=== PATIENT | male | born 1945 | race Caucasian/White ===

== ENCOUNTER 2023-09-19 05:53 | Emergency (ER) | payer MEDICARE, OTHER, SELFPAY ==
[2023-09-19 05:54] VITALS: BP 160/74; BMI 41.2
[2023-09-19 06:22] LABS: % Basophils 0.4 % (0-2); % Eosinophils 2.3 % (0-6); % Immature Granulocytes 0.3 % (0-0.5); % Lymphocytes 31.7 % (20.5-51.1); % Monocytes 9.9 % (1.7-9.3); % Neutrophils 55.4 % (42.2-75.2); Absolute Eosinophils 0.2 10^3/uL (0-0.7); Absolute Lymphocytes 2.5 10^3/uL (1.2-3.4); Absolute Monocytes 0.8 10^3/uL (0.1-0.6); Absolute Neutrophils 4.4 10^3/uL (1.4-6.5); Hematocrit 44.8 % (39.0-52.0); Hemoglobin 15.9 g/dL (13.0-18.0); Mean Corp Hgb Conc. 35.5 g/dL (33.0-37.0); Mean Corpuscular Hgb 30.1 pg (27.0-31.0); Mean Corpuscular Volume 84.8 fL (80.0-94.0); Mean Platelet Volume 10.8 fL (7.4-10.4); Nucleated Red Blood Cells % 0 % (-); Platelet Count 192 10^3/uL (130-400); Red Blood Cell Count 5.28 10^6/uL (4.70-6.10)
[2023-09-19 06:48] LABS: NT-proBNP 387 pg/ml; Troponin I < 0.012 ng/ml
[2023-09-19 06:51] LABS: ALT (SGPT) 28 U/L (0-50); AST (SGOT) 35 U/L (17-59); Alkaline Phosphatase 118 U/L (38-126); Blood Urea Nitrogen 18 mg/dl (9-20); Calcium 8.9 mg/dl (8.4-10.2); Carbon Dioxide 24 mmol/L (22-30); Chloride 107 mmol/L (98-107); Estimated Creatinine Clearance > 125 ml/min; Glucose 129 mg/dl (70-99); Sodium 138 mmol/L (135-145); Total Bilirubin 0.8 mg/dl (0.2-1.3); Total Protein 6.8 g/dl (6.3-8.2); eGFR > 60.00
--- NOTE | 2023-09-19 07:00 | ED.GENMED ---
History of Present Illness
General
Chief Complaint: Chest Pain
Time Seen by Provider: 09/19/23 06:45
Travel History
Have you had any contact with someone who has COVID-19?: No
Do you have any symptoms of coronavirus? Fever > 100 degrees, chills, cough, shortness of breath, sore throat, loss of taste or smell, muscle aches, or headache?: No
History of Present Illness
History of Present Illness:
HPI: The patient presents due to chest discomfort. There is somewhat of a pleuritic component with some earlier shortness of breath which has resolved. This occurred around 4 AM and woke him from sleep. He had a heart attack about 14 months ago
but this time, the symptoms feel different. The patient had a stent placed at that time. At that time, the patient's symptoms started the left hand that migrated up the left upper extremity to the chest. He is known to Dr. Avila.
EXAM:
GENERAL: Well appearing in no distress
HEENT: Moist oral mucosa
CARDIOVASCULAR: No murmurs, normal heart rate with irregular rhythm, No chest wall tenderness
PULMONARY: No respiratory distress, breath sounds are clear and equal
ABDOMEN: Soft with no peritoneal signs, no tenderness
NEUROLOGIC: Excellent strength all extremities, no coordination deficits
PSYCHIATRIC: Appropriate mental status, normal insight and judgement
EXTREMITIES: Nontender, no edema, moves all extremities equally
SKIN: No rash, no lesions
ED COURSE:
7 AM: I initially evaluated patient
NUMBER AND COMPLEXITY OF PROBLEMS ADDRESSED AT THE ENCOUNTER
� Chronic conditions affecting care: CAD, GERD, A-fib on Eliquis, high blood pressure, high blood, diabetes
� Acute Exacerbation and/or Progression of Chronic Illness:
� Differential Diagnosis includes: Musculoskeletal chest wall pain, anxiety, PE, ACS
AMOUNT AND/OR COMPLEXITY OF DATA TO BE REVIEWED AND ANALYZED
� I performed an independent evaluation of and my interpretation is:
EKG: A-fib 70, left axis deviation, nonspecific ST abnormality, on 10/14/2022, the patient was in sinus rhythm
CT: CTA negative for PE; hiatal hernia noted
X-rays:
Laboratory Studies: Initial troponin negative CBC and is unremarkable. Repeat troponin negative
Other:
� Review of other/old records: I reviewed the cath report from 11/24/2021, at that time the patient had a stent placed to the circumflex. Echo in July 03 showed an EF of 50% with indeterminate diastolic function.
� Clinical information was obtained by an independent historian: I spoke to the at bedside.
� Prescriptions/Medications Considered but not given:
� Further testing considered but not performed:
RISK OF COMPLICATIONS AND/OR MORBIDITY OR MORTALITY OF PATIENT MANAGEMENT
� Social determinants of health affecting care: Lives at home
� Discussion with other providers: At 7:10 AM, I notified Dr. Jarrett of the patient's symptoms
� Escalation of care including admission/observation vs risk of discharge considered: The patient is currently nearly chest pain-free and appears very comfortable. He is on Eliquis for A-fib. His EKG and initial troponin
unremarkable. Will check a second troponin. On reassessment at 9:45 AM, troponin unremarkable and he appears very comfortable at time of discharge.
Past History
Past History
ED Past Medical History: GERD, HTN, Hypercholesterolemia, NIDDM, Seizures, Psychiatric (anxiety), Other (RLS, OA, UTE,kidney stones, spinal stenosis) and Other (Iron deficiency anemia, restless leg syndrome, depression, obstructive sleep apnea,
kidney stones, lymphedema)
ED Past Surgical History: Orthopedic and Other (hernia rep)
Social History
Tobacco: Non-smoker
Personal: Single
Living: alone
Phy Exam
Physical Exam
Physical Exam:
See HPI
Scores
Heart Score for Chest Pain Patients
STEMI patient?: Not applicable
Course
Orders/Labs/Results
Orders:
Orders
09/19/23 05:54
EKG [Electrocardiogram (*1)] Urgent
Reason for Study: Chest Pain
EKG- Treatment ONCE
09/19/23 06:12
CBC/With Diff [Complete Blood Count/With Diff] Urgent
CMP [Comprehensive Metabolic Panel] Urgent
Pro-BNP [NT-proBNP] Urgent
Troponin I Urgent
09/19/23 07:00
CT Chest Pe Study Urgent
Comment:
Reason For Exam: pleuritic chest discomfort; sob
09/19/23 07:10
Troponin I Urgent
Abnormal Lab Results
09/19/23
06:12
RDW 15.0 H %
(11.5-14.5)
MPV 10.8 H fL
(7.4-10.4)
Absolute Monos (auto) 0.8 H 10^3/uL
(0.1-0.6)
Monocytes % 9.9 H %
(1.7-9.3)
Creatinine 0.6 L mg/dL
(0.7-1.3)
Glucose 129 H mg/dl
(70-99)
09/19/23 06:12
09/19/23 06:12
Vital Signs
Initial and Last Documented VS:
Initial Vital Signs
Temp Pulse Resp BP Pulse Ox
97.7 F 80 19 160/74 93
09/19/23 05:54 09/19/23 05:54 09/19/23 05:54 09/19/23 05:54 09/19/23 05:54
Last Documented Vital Signs
Temp Pulse Resp BP Pulse Ox
97.7 F 67 19 161/107 96
09/19/23 05:54 09/19/23 08:15 09/19/23 07:07 09/19/23 08:00 09/19/23 08:15
*Critical Care Note
Total Time (30-74mins, 75-104mins- exclusive of procedures): Not Applicable
ED Attending Note
-
Portions of this chart may have been created with voice recognition software.� Occasional wrong word or��sound alike� substitutions may have occurred due to the inherent limitations of voice recognition software.
Discharge Plan
Departure
Patient Disposition: Home (Routine Discharge)
Date of Disposition: 09/19/23
Time of Disposition: 09:57
Patient with high blood pressure during this ER visit?: Yes
Discharge Problem:
Chest pain
Instructions: Chest Pain DCA Follow Up
Prescriptions:
No Action
levetiracetam 250 MG tablet
250 mg PO TID
amlodipine 10 MG tablet
10 mg PO HS
ropinirole 2 MG tablet
2 mg PO BID@1300,2200
sertraline 50 MG tablet
50 mg PO QPM
Centrum Silver 1 EACH tablet
1 ea PO DAILY
furosemide 20 mg Tablet
20 mg PO DAILY
aspirin 81 mg Tablet,Delayed Release (Dr/Ec)
81 mg PO DAILY
ferrous sulfate-vitamin C 65-150 mg Capsule, Extended Release
1 cap PO DAILY
carvedilol 6.25 mg Tablet
6.25 mg PO BID 30 Days Qty: 60 2RF
nitroglycerin 0.4 mg Tablet, Sublingual
0.4 mg sublingual [id number] PRN (Reason: Chest pain) 30 Days Qty: 30 0RF
lisinopril 2.5 mg Tablet
2.5 mg PO DAILY 30 Days Qty: 30 2RF
atorvastatin 40 mg Tablet
80 mg PO QPM 30 Days Qty: 60 2RF
meloxicam 15 mg Tablet
15 mg PO DAILY
cholecalciferol (vitamin D3) [Vitamin D3] 50 mcg (2,000 unit) Tablet
50 mcg PO DAILY
Eliquis 5 mg Tablet
5 mg PO BID
Jardiance 10 mg Tablet
10 mg PO DAILY
mecobalamin (vitamin B12) [B12 Active] 1,000 mcg Tablet,Chewable
1,000 mcg PO DAILY
Referrals:
Tyree Canales MD [Active] - Follow up in 2-3 days
Genaro Harris MD [Family Provider] -
Activity Restrictions/Additional Instructions:
2 cardiac blood tests were normal. EKG is unremarkable. CAT scan of the chest shows no blood clots. Other basic labs normal. Return here if worse. I did notify [facility].
Interventions
Interventions:
*Risk Screen - Suicide Last Done: 09/19/23 05:54
*General Assessment Last Done: 09/19/23 05:54
*Neglect/Abuse Screening Last Done: 09/19/23 05:54
ED- Fall Risk Assessment Last Done: 09/19/23 06:07
*ED COVID-19 Vaccine History Last Done: 09/19/23 05:54
ED- Cardiac Assessment Last Done: 09/19/23 06:07
[2023-09-19 07:07] VITALS: BP 165/83
[2023-09-19 07:42] LABS: Troponin I < 0.012 ng/ml
[2023-09-19 08:00] VITALS: BP 161/107
[2023-09-19 10:04] VITALS: BP 165/80
== END 2023-09-19 10:06 | disposition home or self-care (01) ==
LOC: EMR 05:53
PROVIDERS: Emergency Medicine; EMERGENCY PHYSICIAN Emergency Medicine; FAMILY PHYSICIAN Family Medicine
DX: R07.9 Chest pain, unspecified (principal); R06.02 Shortness of breath; I25.2 Old myocardial infarction; Z79.01 Long term (current) use of anticoagulants; I48.91 Unspecified atrial fibrillation
CPT/HCPCS: 99285; 71275; 80053; 83880; 84484; 85025; 93005; Q9967

== ENCOUNTER 2024-01-31 07:04 | Emergency (ER) | payer MEDICARE, OTHER, SELFPAY ==
[2024-01-31 07:14] VITALS: BP 154/76
[2024-01-31 07:17] VITALS: BMI 41.3
--- NOTE | 2024-01-31 07:22 | ED.GENMED ---
History of Present Illness
General
Chief Complaint: Back Pain
Source: patient
Exam Limitations: none
Time Seen by Provider: 01/31/24 07:21
Nursing documentation reviewed up to this point in time: agreed with
History of Present Illness
History of Present Illness:
78-year-old male with history of A-fib on Eliquis, CAD with a stent, HTN, HLD, IN, sleep apnea with CPAP, kidney stones, NIDDM, anemia, L5 and 6 spinal fusion, chronic back pain presents stating he awakened at 2 AM with a '4 inch band across my
back' of pain that lasted about 2 hours. Much worse and different than his typical back pain. It felt better if he got out of bed and was standing, he use a heating pad with little relief. He states when he awakened later this morning the pain is
worse and coming in spasms and basically in the left upper flank area. He denies fever or chills. Denies N/V/D but may be a little constipated as his last bowel movement was 2 days ago. He denies abdominal pain. He denies trouble urinating.
Past History
Past History
ED Past Medical History: GERD, HTN, Hypercholesterolemia, NIDDM, Seizures, Psychiatric (anxiety), Other (RLS, OA, UTE,kidney stones, spinal stenosis) and Other (Iron deficiency anemia, restless leg syndrome, depression, obstructive sleep apnea,
kidney stones, lymphedema)
ED Past Surgical History: Orthopedic and Other (hernia rep)
Social History
Tobacco: Non-smoker
Personal: Single
Living: alone
Review of Systems
Review of Systems
Allergies reviewed?: Yes
All Other Systems: ROS reviewed and negative except as documented in HPI and ROS
Constitutional: Denies fever or chills
Respiratory: Denies trouble breathing
Cardiac: Denies chest pain
ABD/GI: Reports constipated; Denies abdominal pain, nausea, vomiting or diarrhea
: Reports flank pain (Right); Denies dysuria, frequency, difficulty voiding or urgency
Musculoskeletal: Reports back pain
Skin: Reports no symptoms
Neurological: Reports no symptoms
Phy Exam
Physical Exam
Physical Exam:
GENERAL: No acute distress. A&Ox3.
CONSTITUTIONAL: Afebrile.
EYES: Clear, conjunctivae normal
ENMT: moist mucus membranes, Pharynx nl
RESPIRATORY: Regular respirations, nonlabored, lungs clear.
CARDIOVASCULAR: Regular rate and rhythm, no murmurs, no rubs.
GI: Soft, obese, nontender, normal BS
MUSCULOSKELETAL: No spinal bony tenderness. Moves with ease. Well perfused.
SKIN: Warm, dry, pink
PSYCH: Normal mood and affect. Well kept, interactive and appropriate
NEUROLOGIC: Awake, alert and oriented. No focal neurological deficits
Course
Orders/Labs/Results
Orders:
Orders
01/31/24 07:23
CMP [Comprehensive Metabolic Panel] Urgent
Complete Blood Count/With Diff Urgent
Lipase Urgent
01/31/24 07:31
CT Abd/pel Without Iv Or Oral Urgent
Comment:
Reason For Exam: Left flank pain, history of kidney stones
HYDROmorphone [Dilaudid] 1 mg IV NOW STA
01/31/24 07:32
0.9% Sodium Chloride 1000 ml [Nss] 1,000 ml IV BOLUS
01/31/24 08:10
Urinalysis Reflex To Culture Urgent
Date Specimen was Collected: 01/31/24
Time Specimen was Collected: 08:08
Abnormal Lab Results
01/31/24 01/31/24
07:23 08:10
RBC 4.44 L 10^6/uL
(4.70-6.10)
Absolute Monos (auto) 0.8 H 10^3/uL
(0.1-0.6)
Monocytes % 9.7 H %
(1.7-9.3)
Glucose 110 H mg/dl
(70-99)
Total Protein 6.2 L g/dl
(6.3-8.2)
Urine Glucose 3+ A
(Negative)
01/31/24 07:23
01/31/24 07:23
Vital Signs
Initial and Last Documented VS:
Initial Vital Signs
Temp Pulse Resp BP Pulse Ox
98 F 69 18 154/76 99
01/31/24 07:14 01/31/24 07:14 01/31/24 07:14 01/31/24 07:14 01/31/24 07:14
Last Documented Vital Signs
Temp Pulse Resp BP Pulse Ox
98 F 57 18 135/72 97
01/31/24 07:14 01/31/24 08:14 01/31/24 08:14 01/31/24 09:00 01/31/24 09:28
MDM/Problems Addressed
Differential Diagnosis Includes:
Kidney stone, pyelonephritis, biliary colic, AAA, musculoskeletal back pain
MDM/Problems Addressed:
78-year-old male with history of A-fib on Eliquis, CAD with a stent, HTN, HLD, IN, sleep apnea with CPAP, kidney stones, NIDDM, anemia, L5 and 6 spinal fusion, chronic back pain presents stating he awakened at 2 AM with a '4 inch band across my
back' of pain that lasted about 2 hours. Much worse and different than his typical back pain. It felt better if he got out of bed and was standing, he used a heating pad with little relief. He states when he awakened later this morning the pain
is worse and coming in spasms and basically in the left upper flank area. He denies fever or chills. Denies N/V/D but may be a little constipated as his last bowel movement was 2 days ago. He denies abdominal pain. He denies trouble urinating.
Denies recent trauma, overuse.
9:00 a.m.
CBC normal
CMP normal
Lipase normal
UA negative
CT abdomen and pelvis radiology report read: IMPRESSION:
1). There is a 1 mm nonobstructing calculus in the interpolar portion of the right kidney
The kidneys are otherwise normal
There are no obstructing renal or ureteral calculi.
There is no hydronephrosis or hydroureter.
2). There is a 6.5 mm hiatal hernia
3).There is multilevel lumbar degenerative disc disease and grade 1 spondylolisthesis of L5 on S1
4). There are bilateral L4 laminectomies and bilateral interconnecting pedicle screws at L4 and L5
5). Stable 15% compression fracture of the superior endplate of T11
9:30 AM
Patient reevaluated. His pain is completely gone. Cannot reproduce the pain with palpation of his back, he stands and ambulates without pain. He is aware of his compression T11 fx.
He is very fearful pain will return At pt and 's request, Rx for Tramadol #6 tabs sent to his pharmacy. He states he's had it in the past, knows it's related to Codeine and knows to stop if any sign of allergy occurs.
Chronic conditions affecting care: DM, HTN and CAD
*Critical Care Note
Total Time (30-74mins, 75-104mins- exclusive of procedures): Not Applicable
ED Attending Note
-
Portions of this chart may have been created with voice recognition software.� Occasional wrong word or��sound alike� substitutions may have occurred due to the inherent limitations of voice recognition software.
Discharge Plan
Departure
Patient Disposition: Home (Routine Discharge)
Date of Disposition: 01/31/24
Time of Disposition: 09:21
Patient with high blood pressure during this ER visit?: No
Condition: Good
Discharge Problem:
Back pain
Instructions: Back Pain
Prescriptions:
New
tramadol 50 mg tablet
50 mg PO Q8H PRN (Reason: Pain) Qty: 6 0RF
No Action
levetiracetam 250 MG tablet
250 mg PO TID@0900,1700,2200
ropinirole 2 MG tablet
2 mg PO BID@1300,2200
sertraline 50 MG tablet
50 mg PO DAILY
Centrum Silver 1 EACH tablet
1 tab PO DAILY
furosemide 20 mg Tablet
20 mg PO BID
aspirin 81 mg Tablet,Delayed Release (Dr/Ec)
81 mg PO HS
carvedilol 6.25 mg Tablet
6.25 mg PO BID 30 Days Qty: 60 2RF
lisinopril 2.5 mg Tablet
2.5 mg PO DAILY 30 Days Qty: 30 2RF
meloxicam 15 mg Tablet
15 mg PO DAILY
cholecalciferol (vitamin D3) [Vitamin D3] 50 mcg (2,000 unit) Tablet
50 mcg PO DAILY
Eliquis 5 mg Tablet
5 mg PO BID
Jardiance 10 mg Tablet
10 mg PO DAILY
ropinirole 1 mg Tablet
1 mg PO DAILY@1700
cyanocobalamin (vitamin B-12) 1,000 mcg Tablet
1,000 mcg PO DAILY
amlodipine 5 mg Tablet
5 mg PO HS
Vitron-C 65 mg iron- 125 mg Tablet,Delayed Release (Dr/Ec)
1 tab PO HS
atorvastatin 40 mg tablet
40 mg PO HS
Referrals:
Debby Bustos MD [Family Provider] - As needed
Activity Restrictions/Additional Instructions:
As we discussed, your workup here today shows nothing worrisome.
I sent a prescription to your pharmacy for tramadol 50 mg tablets #6 to take as needed for significant pain
Interventions
Interventions:
*Risk Screen - Suicide Last Done: 01/31/24 07:15
*Neglect/Abuse Screening Last Done: 01/31/24 07:15
ED- Fall Risk Assessment Last Done: 01/31/24 07:17
*ED COVID-19 Vaccine History Last Done: 01/31/24 07:17
*Nursing Disposition Last Done: 01/31/24 09:54
ED-Musculoskeletal Assessment Last Done: 01/31/24 07:26
Discharge Date and Time
Discharge Date/Time: 01/31/24 09:55
Print Language: [id number]
[2024-01-31 07:40] LABS: % Basophils 0.2 % (0-2); % Eosinophils 1.1 % (0-6); % Immature Granulocytes 0.2 % (0-0.5); % Lymphocytes 25.6 % (20.5-51.1); % Monocytes 9.7 % (1.7-9.3); % Neutrophils 63.2 % (42.2-75.2); Absolute Eosinophils 0.1 10^3/uL (0-0.7); Absolute Lymphocytes 2.2 10^3/uL (1.2-3.4); Absolute Monocytes 0.8 10^3/uL (0.1-0.6); Absolute Neutrophils 5.4 10^3/uL (1.4-6.5); Hematocrit 39.8 % (39.0-52.0); Hemoglobin 13.3 g/dL (13.0-18.0); Mean Corp Hgb Conc. 33.4 g/dL (33.0-37.0); Mean Corpuscular Volume 89.6 fL (80.0-94.0); Mean Platelet Volume 10.1 fL (7.4-10.4); Nucleated Red Blood Cells % 0 % (-); Platelet Count 208 10^3/uL (130-400); Red Blood Cell Count 4.44 10^6/uL (4.70-6.10); Red Cell Dist. Width 13.7 % (11.5-14.5); White Blood Cell Count 8.5 10^3/uL (4.8-10.8)
[2024-01-31 07:41] LABS: ALT (SGPT) 18 U/L (0-50); AST (SGOT) 25 U/L (17-59); Albumin 3.7 g/dl (3.5-5.0); Alkaline Phosphatase 94 U/L (38-126); Blood Urea Nitrogen 13 mg/dl (9-20); Calcium 9.3 mg/dl (8.4-10.2); Carbon Dioxide 28 mmol/L (22-30); Chloride 104 mmol/L (98-107); Estimated Creatinine Clearance 94 ml/min; Glucose 110 mg/dl (70-99); Lipase 77 U/L (23-300); Potassium 3.9 mmol/L (3.5-5.1); Sodium 139 mmol/L (135-145); Total Bilirubin 0.6 mg/dl (0.2-1.3); Total Protein 6.2 g/dl (6.3-8.2); eGFR > 60.00
[2024-01-31] MEDS: NSS 1000 IV (07:43)
[2024-01-31] MEDS: DILAUDID 1 MG IV (07:43)
[2024-01-31 08:10] VITALS: BP 144/64
[2024-01-31 08:14] VITALS: BP 144/64
[2024-01-31 08:32] LABS: Urine Albumin Negative (Neg - Trace); Urine Bilirubin Negative (Negative); Urine Character Clear (Clear); Urine Color Yellow; Urine Glucose 3+ (Negative); Urine Ketone Negative (Negative); Urine Leukocyte Negative (Negative); Urine Nitrite Negative (Negative); Urine Occult Blood Negative (Negative); Urine Urobilinogen Negative (Neg - 1+)
[2024-01-31 09:00] VITALS: BP 135/72
== END 2024-01-31 09:55 | disposition home or self-care (01) ==
LOC: EMR 07:04
PROVIDERS: Registered Nurse; EMERGENCY PHYSICIAN Emergency Medicine; FAMILY PHYSICIAN Internal Medicine Geriatric Medicine
DX: M54.9 Dorsalgia, unspecified (principal); I10 Essential (primary) hypertension; I25.10 Atherosclerotic heart disease of native coronary artery without angina pectoris; E11.9 Type 2 diabetes mellitus without complications; I48.91 Unspecified atrial fibrillation; Z79.01 Long term (current) use of anticoagulants
CPT/HCPCS: 99284; 96374; 96361; 74176; 80053; 81003; 83690; 85025

== ENCOUNTER 2024-03-15 05:55 | Emergency (ER) | payer MEDICARE, OTHER, SELFPAY ==
[2024-03-15 05:59] VITALS: BP 149/78
[2024-03-15 06:30] VITALS: BMI 38.8
[2024-03-15] MEDS: ROXICODONE 5 MG PO (07:41)
--- NOTE | 2024-03-15 07:42 | ED.GENMED ---
History of Present Illness
General
Chief Complaint: Musculo-Skeletal Complaint
Source: patient and spouse
Exam Limitations: none
Time Seen by Provider: 03/15/24 06:46
Nursing documentation reviewed up to this point in time: agreed with
History of Present Illness
History of Present Illness:
78-year-old male with past medical history of hypertension, hyperlipidemia, atrial fibrillation on Eliquis, diabetes who presents to the emergency department for evaluation of right shoulder/neck pain. Patient reports that he has had chronic issues
with pain in his right shoulder; he says that he had been following with pain management doctor and had an injection in the shoulder about 3 weeks ago. He says that symptoms have been attributed to arthritis and he had been on NSAIDs but he was
told to discontinue this a few months ago given that he is on Eliquis and has been having trouble managing his shoulder and other arthritis pain since. He says that last night he ate and was sitting in his armchair and fell asleep in the chair
sitting upright. He says that when he woke up from his nap he had pain in the right shoulder that was worse than usual. He says that the pain is really more in the right clavicular region and radiates towards the right lateral part of the neck.
He says that he has been unable to move his right arm due to significant pain with movement. He says he was unable to manage the pain with Tylenol this morning and so he came to the emergency room to be evaluated. He denies any chest pain. Denies
any shortness of breath. He denies any other complaints.
Past History
Past History
ED Past Medical History: GERD, HTN, Hypercholesterolemia, NIDDM, Seizures, Psychiatric (anxiety), Other (RLS, OA, UTE,kidney stones, spinal stenosis) and Other (Iron deficiency anemia, restless leg syndrome, depression, obstructive sleep apnea,
kidney stones, lymphedema)
ED Past Surgical History: Orthopedic and Other (hernia rep)
Social History
Tobacco: Non-smoker
Personal: Single
Living: alone
Review of Systems
Review of Systems
All Other Systems: ROS reviewed and negative except as documented in HPI and ROS
Respiratory: Denies trouble breathing
Cardiac: Denies chest pain or diaphoresis
ABD/GI: Denies nausea
Musculoskeletal: Reports other (Right shoulder pain)
Phy Exam
Physical Exam
Physical Exam:
General: Awake, alert, oriented x3; sitting up in bed intermittently rubbing his right shoulder with his left hand
Head: Normocephalic, atraumatic
Eyes: Conjunctiva normal
Throat: Airway intact, handling secretions
Neck: Trachea midline, supple without meningismus
Lungs: Clear to auscultation bilaterally, no wheezing, rales, rhonchi
Heart: Regular rate and rhythm, no murmurs, gallops, or rubs
Abd: Soft, non distended, nontender
Neuro: Motor and sensory function intact radial, median, ulnar nerve distribution
Skin: no rash
Extremities: No edema in extremities, equal pulses in all extremities�specifically strong palpable distal right radial pulse; he has no trauma or deformity of the shoulder; he has point tenderness along the right proximal clavicle and towards the
sternoclavicular joint; he also has tenderness along the lateral neck along the sternocleidomastoid; he has no tenderness at the AC joint on the right, no tenderness along the humeral head or the right scapula; he does have pain with any attempts at
passive range of motion of the shoulder is only noted to tolerate short range through flexion, extension, internal and external rotation, abduction; no tenderness in the left shoulder and good range of motion
Scores
Heart Failure Risk
Heart Failure Risk Score: Not Applicable
Heart Score for Chest Pain Patients
STEMI patient?: Not applicable
Withdrawal Assessment of Alcohol
Withdrawal Assessment Completed?: Not applicable
Course
Orders/Labs/Results
Orders:
Orders
03/15/24 06:49
Electrocardiogram (*1) Urgent
Reason for Study: Other
Other Reason for Exam: shoulder pain
EKG- Treatment ONCE
03/15/24 07:17
Oxycodone [Roxicodone] 5 mg PO NOW STA
CR Clavicle - Right Complete Urgent
Comment:
Reason For Exam: R shoulder pain
CR Shoulder - Right Min 2 View Urgent
Comment:
Reason For Exam: R shoulder pain
Vital Signs
Initial and Last Documented VS:
Initial Vital Signs
Temp Pulse Resp BP Pulse Ox
36.6 C 69 20 149/78 95
03/15/24 05:59 03/15/24 05:59 03/15/24 05:59 03/15/24 05:59 03/15/24 05:59
Last Documented Vital Signs
Temp Pulse Resp BP Pulse Ox
36.6 C 69 20 149/78 95
03/15/24 05:59 03/15/24 05:59 03/15/24 05:59 03/15/24 05:59 03/15/24 05:59
MDM/Problems Addressed
Differential Diagnosis Includes:
Muscle spasm (sternocleidomastoid), arthritis, radiculopathy; ACS/acute ME must be considered given cardiac history but very unlikely based on exam and history
MDM/Problems Addressed:
78-year-old male presents for right shoulder/neck pain. Has chronic issues with right shoulder but has an acute flare since falling asleep upright in the chair yesterday. Having trouble moving the arm due to significant pain in shoulder with range
of motion. His point tenderness seems to be more in the region of the sternocleidomastoid near the sternal notch and proximal clavicle as well as some mild tenderness along the lateral right trapezius and sternocleidomastoid in the neck. He has
minimal tenderness along the AC joint or humeral head but has significant pain with attempts at range of motion in the right shoulder. Neurovascular status is intact in the right upper extremity. Given his history I think we should check an EKG
although low suspicion that this is anginal chest pain/acute ME�pain is quite consistently reproducible to movement and touch and seems convincingly musculoskeletal in my judgment. Will check an x-ray of the shoulder and clavicle. Patient is on
Eliquis, NSAIDs contraindicated. He is already taken Tylenol without adequate pain relief. Will trial oxycodone. Reassess after the above.
X-rays reviewed and show no acute pathology only chronic degenerative changes. EKG no signs of acute ischemia. Patient feeling much better after pain medication here. I do suspect this is more of a sternocleidomastoid issue but with his issues
with range of motion in the shoulder I did provide a sling for support. I encouraged early range of motion in the neck and shoulder. Encouraged heat. Tylenol as needed and oxycodone only for severe breakthrough pain. Advised to use oxycodone
cautiously. Encouraged to follow-up with PCP as an outpatient. Patient very comfortable with this plan. Spoke about return precautions and all questions answered.
Chronic conditions affecting care:
CAD, arthritis
*Radiology
Radiology exam reviewed: preliminary read by ED provider and radiology read reviewed
*Pulse Oximetry
Patient hypoxic: no
*EKG
Interpreted by ED Provider?: Yes
Heart Rate: 68
Rate: normal
Rhythm: sinus
[place]: left axis deviation
Interval: first degree heart block
QRS Pattern: other (LAFB)
Ischemia: no ischemia
*Critical Care Note
Total Time (30-74mins, 75-104mins- exclusive of procedures): Not Applicable
Data Reviewed
Review of Other/Old Records Reveals: Records
Source: patient, records and spouse
ED Attending Note
-
Portions of this chart may have been created with voice recognition software.� Occasional wrong word or��sound alike� substitutions may have occurred due to the inherent limitations of voice recognition software.
Discharge Plan
Departure
Patient Disposition: Home (Routine Discharge)
Date of Disposition: 03/15/24
Time of Disposition: 10:16
Patient with high blood pressure during this ER visit?: Yes
Discharge Problem:
Acute shoulder pain
Instructions: Muscle and Bone Pain (DC)
Prescriptions:
New
oxycodone 5 mg tablet
5 mg PO BID PRN (Reason: Pain) Qty: 7 0RF
No Action
levetiracetam 250 MG tablet
250 mg PO TID@0900,1700,2200
ropinirole 2 MG tablet
2 mg PO BID@1300,2200
sertraline 50 MG tablet
50 mg PO DAILY
Centrum Silver 1 EACH tablet
1 tab PO DAILY
furosemide 20 mg Tablet
20 mg PO BID
aspirin 81 mg Tablet,Delayed Release (Dr/Ec)
81 mg PO HS
carvedilol 6.25 mg Tablet
6.25 mg PO BID 30 Days Qty: 60 2RF
lisinopril 2.5 mg Tablet
2.5 mg PO DAILY 30 Days Qty: 30 2RF
meloxicam 15 mg Tablet
15 mg PO DAILY
cholecalciferol (vitamin D3) [Vitamin D3] 50 mcg (2,000 unit) Tablet
50 mcg PO DAILY
Eliquis 5 mg Tablet
5 mg PO BID
Jardiance 10 mg Tablet
10 mg PO DAILY
ropinirole 1 mg Tablet
1 mg PO DAILY@1700
cyanocobalamin (vitamin B-12) 1,000 mcg Tablet
1,000 mcg PO DAILY
amlodipine 5 mg Tablet
5 mg PO HS
Vitron-C 65 mg iron- 125 mg Tablet,Delayed Release (Dr/Ec)
1 tab PO HS
atorvastatin 40 mg tablet
40 mg PO HS
tramadol 50 mg tablet
50 mg PO Q8H PRN (Reason: Pain) Qty: 6 0RF
Referrals:
Debby Bustos MD [Family Provider] - Follow up in 5-7 days
Activity Restrictions/Additional Instructions:
Thank you for visiting the Emergency Department at [facility].
1. Please schedule a follow up appointment as directed. Call first thing tomorrow morning to make an appointment.
2. If indicated, please take your medications as instructed and indicated on discharge paperwork.
3. If any of your symptoms do not improve, or persist, or become more severe within 6-12 hours, please return to the emergency department for further care.
4. Please return to the emergency department if you develop a headache, neck pain/stiffness, fever greater than 100.4F, chest pain, shortness of breath, persistent nausea, vomiting, slurred speech, difficulty walking, numbness/tingling, weakness,
signs of infection or any other symptoms that are worrisome to you.
Please call [phone] if you have any questions.
Interventions
Interventions:
*Risk Screen - Suicide Last Done: 03/15/24 05:59
*General Assessment Last Done: 03/15/24 05:59
*Neglect/Abuse Screening Last Done: 03/15/24 05:59
ED- Fall Risk Assessment Last Done: 03/15/24 05:59
*ED COVID-19 Vaccine History Last Done: 03/15/24 05:59
ED-Musculoskeletal Assessment Last Done: 03/15/24 06:31
Discharge Date and Time
Print Language: SYRIAC
[2024-03-15 08:30] VITALS: BP 139/70
== END 2024-03-15 10:25 | disposition home or self-care (01) ==
LOC: EMR 05:55
PROVIDERS: EMERGENCY PHYSICIAN Emergency Medicine; FAMILY PHYSICIAN Internal Medicine Geriatric Medicine
DX: M25.511 Pain in right shoulder (principal); I10 Essential (primary) hypertension; E78.00 Pure hypercholesterolemia, unspecified; I25.10 Atherosclerotic heart disease of native coronary artery without angina pectoris
CPT/HCPCS: 99284; 73000; 73030; 93005

== ENCOUNTER → 2024-05-22 07:15 | Outpatient (REF) | payer MEDICARE, OTHER, SELFPAY | LOC: EMG 07:15 | PROVIDERS: ATTENDING PHYSICIAN Internal Medicine Geriatric Medicine | DX: E11.618 Type 2 diabetes mellitus with other diabetic arthropathy (principal); M54.12 Radiculopathy, cervical region; R20.0 Anesthesia of skin | CPT/HCPCS: 95886; 95911 ==

== ENCOUNTER 2024-07-25 16:55 | Emergency (ER) | payer MEDICARE, OTHER, SELFPAY ==
[2024-07-25 17:05] VITALS: BP 163/77
[2024-07-25 17:16] LABS: % Basophils 0.1 % (0-2); % Eosinophils 0.6 % (0-6); % Immature Granulocytes 0.5 % (0-0.5); % Lymphocytes 13.1 % (20.5-51.1); % Monocytes 14.6 % (1.7-9.3); % Neutrophils 71.1 % (42.2-75.2); Absolute Eosinophils 0.1 10^3/uL (0-0.7); Absolute Lymphocytes 1.1 10^3/uL (1.2-3.4); Absolute Monocytes 1.3 10^3/uL (0.1-0.6); Absolute Neutrophils 6.2 10^3/uL (1.4-6.5); Hematocrit 41.3 % (39.0-52.0); Hemoglobin 13.7 g/dL (13.0-18.0); Mean Corp Hgb Conc. 33.2 g/dL (33.0-37.0); Mean Corpuscular Volume 90.6 fL (80.0-94.0); Nucleated Red Blood Cells % 0 % (-); Platelet Count 147 10^3/uL (130-400); Red Blood Cell Count 4.56 10^6/uL (4.70-6.10); Red Cell Dist. Width 13.8 % (11.5-14.5); White Blood Cell Count 8.7 10^3/uL (4.8-10.8)
[2024-07-25 17:28] LABS: Lactic Acid 0.9 mmol/L (0.7-2.0)
[2024-07-25 17:29] LABS: ALT (SGPT) 20 U/L (0-50); AST (SGOT) 26 U/L (17-59); Albumin 3.7 g/dl (3.5-5.0); Alkaline Phosphatase 93 U/L (38-126); Blood Urea Nitrogen 15 mg/dl (9-20); Calcium 8.5 mg/dl (8.4-10.2); Carbon Dioxide 27 mmol/L (22-30); Chloride 99 mmol/L (98-107); Glucose 112 mg/dl (70-99); Potassium 3.1 mmol/L (3.5-5.1); Sodium 136 mmol/L (135-145); Total Bilirubin 0.6 mg/dl (0.2-1.3); Total Protein 6.1 g/dl (6.3-8.2); eGFR > 60.00
[2024-07-25 18:09] VITALS: BP 142/68
--- NOTE | 2024-07-25 18:22 | EDRN ---
Adams Peraza PA in room w/ pt. Pt's POX dipping down to 90-91% and about to put 2lpm of oxygen on and POX was 96%. Adams Peraza PA said okay to oxygen and okay to no putting it on but watch POX.
--- NOTE | 2024-07-25 18:30 | ED.GENMED ---
History of Present Illness
General
Chief Complaint: Weakness
Source: patient and spouse
Time Seen by Provider: 07/25/24 18:00
History of Present Illness
History of Present Illness:
78-year-old male with past medical history of of CAD status postcardiac stenting, atrial fibrillation, [id number]-neawboehm diabetes, sleep apnea, restless leg syndrome/chronic presenting to the emergency department via EMS from home after he
started to feel slightly unwell last night, today felt very warm and fatigued, was sitting in his recliner and in the afternoon time was unable to get up from the recliner due to generalized weakness. Patient had not taken anything for his fever
prior to arrival, believes he did get a dose of Tylenol on the way to the ER. Patient has no other specific infectious symptoms including cough, sore throat or other upper respiratory like symptoms, abdominal pain, nausea, vomiting, bowel changes.
Patient does note for the last 3 months he has had urinary issues including frequent urination and sometimes inability to control his bladder. Scheduled to undergo prostate biopsy this coming . Patient also notes that on Saturday of this
week he had dental work done and prior to the dental surgery did take a few doses of antibiotics as normally would.
Past History
Past History
ED Past Medical History: GERD, HTN, Hypercholesterolemia, NIDDM, Seizures, Psychiatric (anxiety), Other (RLS, OA, UTE,kidney stones, spinal stenosis) and Other (Iron deficiency anemia, restless leg syndrome, depression, obstructive sleep apnea,
kidney stones, lymphedema)
ED Past Surgical History: Orthopedic and Other (hernia rep)
Social History
Tobacco: Non-smoker
Alcohol: None
Drug: None
Personal:
Living: with family
Review of Systems
Review of Systems
All Other Systems: ROS reviewed and negative except as documented in HPI and ROS
Phy Exam
Physical Exam
Physical Exam:
GENERAL: Alert , in no apparent distress, somewhat overweight
HEAD: NCAT
EYE: clear conjunctiva
NECK: Supple
ENT: o/p clr, mmm.
CARDIAC: Regular rate and rhythm .
LUNGS: Clear breath sounds bilaterally, no acute respiratory distress, no wheezes/rales/rhonchi
ABDOMEN: Soft, without focal tenderness, no r/g, no cvat
NEUROLOGICAL: Alert and oriented x 3
SKIN: Warm and dry, skin intact.
MUSCULOSKELETAL: trace ankle edema b/l, well perfused.
PSYCH: Normal and appropriate interaction.
Scores
Heart Failure Risk
Heart Failure Risk Score: Not Applicable
Heart Score for Chest Pain Patients
STEMI patient?: Not applicable
Withdrawal Assessment of Alcohol
Withdrawal Assessment Completed?: Not applicable
Course
Orders/Labs/Results
Orders:
Orders
07/25/24 16:58
Electrocardiogram (*1) Urgent
Reason for Study: Other
Other Reason for Exam: Possible Sepsis
Cardiac Monitoring- Treatment ONCE
EKG- Treatment ONCE
IV Insert/Care/Rem.- Treatment PRN
O2 Therapy [RESP] Urgent
Titrate/Wean O2 to maintain O2 sat greater than (%): 93
Special Instructions: TO MAINTAIN CONTINUOUS O2 SATS > OR = 93%
Pulse Ox/cont/shift [RESP] Urgent
Quantity: 1
Special Instructions: CONTINUOUS
07/25/24 17:09
Complete Blood Count/With Diff Urgent
Comprehensive Metabolic Panel Urgent
Lactic Acid Urgent
Magnesium Urgent
07/25/24 17:12
Acetaminophen [Tylenol] 1,000 mg .ROUTE .STK-MED ONE
07/25/24 18:00
CR Chest - 2 Views Urgent
Comment:
Reason For Exam: fever, hypoxia, weakness
07/25/24 18:15
COVID-19 Antigen Urgent
Source: Nasal Swab
Influenza A+B Rapid Molecular Urgent
CARLOS Source: Nasal Swab
Specimen Description:
07/25/24 18:29
Acetaminophen [Tylenol] 650 mg PO NOW STA
Ropinirole [Requip] 1 mg PO NOW STA
07/25/24 18:36
Add On- LAB Urgent
Tests Added?: magnesium
Potassium Chloride [KCl] 40 meq PO NOW STA
07/25/24 18:42
Ropinirole [Requip] 1 mg PO NOW STA
Abnormal Lab Results
07/25/24 07/25/24
17:09 18:15
RBC 4.56 L 10^6/uL
(4.70-6.10)
Absolute Lymphs (auto) 1.1 L 10^3/uL
(1.2-3.4)
Absolute Monos (auto) 1.3 H 10^3/uL
(0.1-0.6)
Lymphocytes % 13.1 L %
(20.5-51.1)
Monocytes % 14.6 H %
(1.7-9.3)
Potassium 3.1 L mmol/L
(3.5-5.1)
Glucose 112 H mg/dl
(70-99)
Total Protein 6.1 L g/dl
(6.3-8.2)
SARS-CoV-2 Antigen Positive A
(Negative)
07/25/24 17:09
07/25/24 17:09
Vital Signs
Initial and Last Documented VS:
Initial Vital Signs
Temp Pulse Resp Pulse Ox
101.2 F H 81 17 92
07/25/24 17:00 07/25/24 17:00 07/25/24 17:00 07/25/24 17:00
Last Documented Vital Signs
Temp Pulse Resp BP Pulse Ox
101.2 F H 83 15 142/68 92
07/25/24 17:00 07/25/24 18:15 07/25/24 18:15 07/25/24 18:09 07/25/24 18:15
MDM/Problems Addressed
Differential Diagnosis Includes:
Viral syndrome, COVID, flu, pneumonia, urinary tract infection, given recent dental work will check blood cultures for possible endocarditis however patient without any murmur during exam
MDM/Problems Addressed:
78-year-old male presenting emergency department for evaluation of generalized weakness, unable to stand on his own, found to be febrile here. Normal blood pressure however oxygen saturation is wavering between 92 to 96% on room air but patient is
in no acute respiratory distress. Will treat with additional Tylenol for fever. Labs initiated on arrival. I did add on urine, chest x-ray, blood cultures and lactic acid. Will also check COVID and flu. Disposition pending however given
comorbidities combined with inability to get up on his own without significant assistance I do anticipate patient will likely need admission
Chronic conditions affecting care: DM and CAD
*Pulse Oximetry
Patient hypoxic: no
*EKG
Heart Rate: 82
Rate: normal
Rhythm: sinus
[place]: left axis deviation
*Assembly Inspector Helper Interpretation
Rate: normal
Rhythm: sinus
*Critical Care Note
Total Time (30-74mins, 75-104mins- exclusive of procedures): Not Applicable
Data Reviewed
Review of Other/Old Records Reveals: Labs and Records
Comment
Comment:
In May 2019 patient developed Streptococcus bacteremia and was admitted for an extended period of time which required extended IV antibiotics. No clear cause for patient's bacteremia at that time. There is no valvular involvement found on
transthoracic echocardiogram. Patient also had previous knee replacement had screening exams done but no obvious sign of osteomyelitis or infection seen on the screenings within the left knee.
Patient Management
Social determinants of health affecting care: Living situation and Strong social support
Escalation/DeEscalation of care consider admission/obs:
Patient COVID test returned positive. He was treated with a 40 mill equivalent dose of potassium due to mild hypokalemia. Chest x-ray without any acute abnormalities. Following fluids patient was able to get up out of bed on his own and ambulate
without any difficulty. Pulse ox remained within normal limits and patient expressed the want to be discharged home. We discussed return precautions to the ER and both and patient are in agreement with this plan. Stable for discharge home.
ED Attending Note
-
Portions of this chart may have been created with voice recognition software.� Occasional wrong word or��sound alike� substitutions may have occurred due to the inherent limitations of voice recognition software.
Discharge Plan
Departure
Patient Disposition: Home (Routine Discharge)
Date of Disposition: 07/25/24
Time of Disposition: 21:23
Patient with high blood pressure during this ER visit?: Yes
Discharge Problem:
COVID-19
Instructions: COVID-19 - ED discharge instructions
Prescriptions:
No Action
levetiracetam 250 MG tablet
250 mg PO TID@0900,1700,2200
ropinirole 2 MG tablet
2 mg PO BID@1300,2200
sertraline 50 MG tablet
50 mg PO DAILY
Centrum Silver 1 EACH tablet
1 tab PO DAILY
furosemide 20 mg Tablet
20 mg PO BID
aspirin 81 mg Tablet,Delayed Release (Dr/Ec)
81 mg PO HS
carvedilol 6.25 mg Tablet
6.25 mg PO BID 30 Days Qty: 60 2RF
lisinopril 2.5 mg Tablet
2.5 mg PO DAILY 30 Days Qty: 30 2RF
meloxicam 15 mg Tablet
15 mg PO DAILY
cholecalciferol (vitamin D3) [Vitamin D3] 50 mcg (2,000 unit) Tablet
50 mcg PO DAILY
Eliquis 5 mg Tablet
5 mg PO BID
Jardiance 10 mg Tablet
10 mg PO DAILY
ropinirole 1 mg Tablet
1 mg PO DAILY@1700
cyanocobalamin (vitamin B-12) 1,000 mcg Tablet
1,000 mcg PO DAILY
amlodipine 5 mg Tablet
5 mg PO HS
Vitron-C 65 mg iron- 125 mg Tablet,Delayed Release (Dr/Ec)
1 tab PO HS
atorvastatin 40 mg tablet
40 mg PO HS
tramadol 50 mg tablet
50 mg PO Q8H PRN (Reason: Pain) Qty: 6 0RF
oxycodone 5 mg tablet
5 mg PO BID PRN (Reason: Pain) Qty: 7 0RF
Referrals:
Debby Bustos MD [Family Provider] -
Interventions
Interventions:
*Risk Screen - Suicide Last Done: 07/25/24 17:00
*General Assessment Last Done: 07/25/24 17:00
*Neglect/Abuse Screening Last Done: 07/25/24 17:00
*ED COVID-19 Vaccine History Last Done: 07/25/24 17:00
*Nursing Disposition Last Done: 07/25/24 21:41
ED- Cardiac Assessment Last Done: 07/25/24 17:06
ED- Neurological Assessment Last Done: 07/25/24 17:06
ED- Pulmonary Assessment Last Done: 07/25/24 17:06
Discharge Date and Time
Discharge Date/Time: 07/25/24 21:42
Print Language: BANGLADESHI
[2024-07-25] MEDS: KCL 40 MEQ PO (18:48)
[2024-07-25] MEDS: TYLENOL 650 MG PO (18:49)
[2024-07-25] MEDS: REQUIP 1 MG PO (18:51)
[2024-07-25 19:25] LABS: COVID-19 Antigen Positive (Negative)
[2024-07-25 19:50] LABS: Magnesium 1.9 mg/dl (1.6-2.3)
[2024-07-26 08:21] LABS: Urine Albumin Trace (Neg - Trace); Urine Bilirubin Negative (Negative); Urine Character Very Cloudy (Clear); Urine Color Yellow; Urine Glucose 3+ (Negative); Urine Ketone 1+ (Negative); Urine Leukocyte Negative (Negative); Urine Nitrite Negative (Negative); Urine Occult Blood Trace (Negative); Urine Urobilinogen Negative (Neg - 1+)
[2024-07-26 08:36] LABS: Urine Amorphous Seen; Urine Calcium Oxalate Crystals Present; Urine Squamous Cell None seen /LPF (Few)
[2024-07-26 08:37] LABS: Urine Red Blood Cell 0-2 /HPF (0-2)
== END 2024-07-25 21:42 | disposition home or self-care (01) ==
LOC: EMR 16:55
PROVIDERS: Physician Assistant Medical; EMERGENCY PHYSICIAN Student in an Organized Health Care Education/Training Program; FAMILY PHYSICIAN Internal Medicine Geriatric Medicine
DX: U07.1 COVID-19 (principal); I25.10 Atherosclerotic heart disease of native coronary artery without angina pectoris; E11.9 Type 2 diabetes mellitus without complications; E78.00 Pure hypercholesterolemia, unspecified; E87.6 Hypokalemia; F41.8 Other specified anxiety disorders; G25.81 Restless legs syndrome; G47.33 Obstructive sleep apnea (adult) (pediatric); I10 Essential (primary) hypertension; K21.9 Gastro-esophageal reflux disease without esophagitis; Z87.442 Personal history of urinary calculi
CPT/HCPCS: 99283; 71046; 80053; 81003; 81015; 83605; 83735; 85025; 87502; 87811; 93005

== ENCOUNTER → 2025-05-25 13:51 | Outpatient (REF) | payer MEDICARE, OTHER, SELFPAY | LOC: RAD 13:51 | PROVIDERS: ATTENDING PHYSICIAN Urology | DX: C61 Malignant neoplasm of prostate (principal); M85.841 Other specified disorders of bone density and structure, right hand | CPT/HCPCS: 77080 ==